=== PATIENT | male | born 1965 | race Caucasian/White ===

== ENCOUNTER 2016-07-12 03:50 | Emergency (ER) ==
[2016-07-12] MEDS ORDERED: DILAUDID IV ONE (04:58)
[2016-07-12] MEDS ORDERED: ZOFRAN IV ONE (04:58)
[2016-07-12] MEDS ORDERED: PROTONIX IV ONE (04:58)
[2016-07-12] MEDS ORDERED: SODIUM CHLORIDE 0.9% INJ ONE (05:01)
[2016-07-12] MEDS ORDERED: NS 1,000 ML IV ONE (05:02)
[2016-07-12 05:27] LABS: MANUAL DIFF NEEDED? NO
[2016-07-12 05:33] LABS: BASO% 0.2 % (0.0-0.8); EOS% 5.8 % (0.0-10.0); HEMATOCRIT 46.3 % (42.0-52.0); HEMOGLOBIN 15.9 g/dL (14.0-18.0); IMM GRAN# 0.02 X1000 (0.0-0.04); IMM GRAN% 0.2 % (0.0-0.5); LYMPH# 2.79 X1000 (1.2-3.4); MCH 30.7 PG (27-31); MCHC 34.3 g/dL (33-37); MCV 89.4 FL (81-99); MONO# 1.06 X1000 (0.11-0.59); MONO% 10.3 % (1.7-9.3); MPV 9.8 FL (7.4-10.4); NEUT% 56.5 % (42.2-75.2); PLT 399 X1000 (130-400); RBC 5.18 XMIL (4.7-6.1)
--- NOTE | 2016-07-12 05:49 | PROVIDER DOCUMENTATION ---
HPI-Abdominal Pain/GI Problem - History of Present Illness-ABD Nature of Presenting Problems: pt had vomiting/diarrhea for 3 dfays /last nitgh developed llq pain assoc w/ melena times 2 ...pt had bowell resecton 20 yrs ago for diverticultis //pt w/ra on adriane Abdominal Pain Onset Location: reports: LLQ, generalized abdomen Pain Radiation: reports: LLQ Quality of Pain: reports: aching, cramping Severity in ED: reports: moderate Onset/Duration: reports: gradual, 24 hours ago Timing: reports: still present, changing over time, getting worse Exposure to sick contacts?: No Associated Symptoms: reports: diarrhea, fever/chills, heartburn, malaise, nausea , vomiting. denies: chest pain, constipation, shortness of breath, pain with inspiration Last BM: this morning Dark Stools Present?: reports: black Rectal Bleeding: denies: bleeding without stool # of Diarrhea Episodes: 2 # of Vomiting Episodes: 4 Emesis Description: reports: none Bruising or Bleeding Gums?: No Similar Symptoms Previously?: No Recently seen or treated by another doctor?: Yes <Baljit Saucedo - Last Filed: 07/12/16 05:43> <Raul Hurst - Last Filed: 07/12/16 07:04> - General Chief Complaint: GI Bleed Stated Complaint: ABD PAIN, N/V/D Time Seen by Provider: 07/12/16 04:25 Allergies/Adverse Reactions: Patient Allergies Allergy/AdvReac Type Severity Reaction Status Date / Time No Known Allergies Allergy Verified 07/12/16 05:29 Home Medications: Home Medication List Medication Instructions Recorded Confirmed Last Taken Type Adalimumab [Humira] 10 mg SQ DIRECTED 07/12/16 07/12/16 07/04/16 History Metronidazole [Flagyl] 500 mg PO 4XDAY #40 tablet 07/12/16 Unknown Rx Sulfamethoxazole/Trimethoprim 2 each PO BID #40 tablet 07/12/16 Unknown Rx [Bactrim Ds Tablet] Sulfasalazine 200 mg PO BID 07/12/16 07/12/16 07/12/16 History Review of Systems - Adult - REVIEW OF SYSTEMS - ADULT Constitutional: reports: see HPI All Other Systems: Reviewed and Negative <Baljit Saucedo - Last Filed: 07/12/16 05:43> Past History - Adult - PAST MEDICAL HISTORY-ADULT Review of Records: reports: Old Records Reviewed, Nursing Assessment Review, Medications Reviewed, Social history reviewed & non-contributory. Cardiovascular: reports: denies history Respiratory: reports: denies history Gastrointestinal: reports: diverticulosis, GERD, GI bleed, other Musculoskeletal: reports: arthritis Neurological: reports: denies history Psychiatric: reports: denies history - IMMUNIZATION STATUS Childhood Immunizations: See Nurse Assessment Flu Vaccine: See Nurse Assessment - FAMILY HISTORY Family History: reviewed, not pertinent - SOCIAL HISTORY Smoking: denies Provider spent 3-5 mins advising pt. on dangers of tobacco.: Discussed manners to quit use, and f/u contacts for add'l counseling. Substance Use: none/never Alcohol Use Frequency: never Living Situation: family <Baljit Saucedo - Last Filed: 07/12/16 05:43> Physical Exam-General - PHYSICAL EXAM-ADULT Initial Vital Signs Reviewed: Yes - CONSTITUTIONAL General Appearance: alert, no apparent distress, anxious - EYES Eyes: PERRL/EOMI - HEAD, EARS, NOSE, MOUTH & THROAT HENMT: normocephalic/atraumatic, moist mucous membranes, normal ENT inspection - RESPIRATORY Respiratory: chest non-tender, lungs clear, normal breath sounds, no pleuratic chest pain - CARDIOVASCULAR Cardiovascular: normal peripheral pulses, regular rate, rhythm, no edema, no gallop - GASTROINTESTINAL (ABDOMEN) Abdominal Exam: normal bowel sounds, soft, no organomegaly, no pulsatile mass, tenderness (llq pain) - GENITOURINARY Rectal Exam: other (black stools in toillet) Hemoccult Exam: heme positive stool - MUSCULOSKELETAL Back Exam: normal inspection, no CVA tenderness, no vertebral tenderness Extremity: normal range of motion, non-tender, normal gait, normal inspection - SKIN Integumentary: normal color, normal turgor, warm/dry - 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 as tested, grossly normal, no motor/sensory deficits - PSYCHIATRIC Psych/Mental Status: normal mood/affect, normal thought content, oriented x 3 <Baljit Saucedo - Last Filed: 07/12/16 05:43> Progress - REASSESSMENT Reassessment #1 Time Reassessed: 05:50 (cbc=wnl) Status: unchanged - CHANGE OF SHIFT REPORT (ED Provider) Report Given and Care Transferred to:: dr butt Time of Transfer: 05:50 Items Pending: Labs, CT/MRI Results, Physician Consult/Arrival <Baljit Saucedo M - Last Filed: 07/12/16 05:43> - PLAN OF CARE/RESULTS Progress/Plan/Lab Results: CT abdomen reveals a right sided colitis Laboratory Tests 07/12/16 07/12/16 05:15 05:15 WBC 10.33 RBC 5.18 Hgb 15.9 Hct 46.3 MCV 89.4 MCH 30.7 MCHC 34.3 RDW Std Deviation 12.9 Plt Count 399 MPV 9.8 Immature Gran % (Auto) 0.2 Neut % (Auto) 56.5 Lymph % (Auto) 27.0 Wetzel % (Auto) 10.3 H Eos % (Auto) 5.8 Baso % (Auto) 0.2 Immature Gran # (Auto) 0.02 Neut # (Auto) 5.84 Lymph # (Auto) 2.79 Wetzel # (Auto) 1.06 H Eos # (Auto) 0.60 Baso # (Auto) 0.02 Sodium 141 Potassium 3.9 Chloride 102 Carbon Dioxide 23 L Anion Gap 16 BUN 7 L Creatinine 0.8 Estimated GFR/1.73 m2 > 60 BUN/Creatinine Ratio 9 Glucose 103 Calculated Osmolality 279 Calcium 9.1 Total Bilirubin 0.23 AST 14 ALT 15 Alkaline Phosphatase 71 Total Protein 7.3 Albumin 4.0 Globulin 3.3 Albumin/Globulin Ratio 1.2 Amylase 62 Lipase 19 Orders Category Date Time Status Orthostatic Vital Signs NOW Care 07/12/16 04:[address] ABD/PELVIS W/ IV CONT ONLY [CT] Stat Exams 07/12/16 05:01 Taken AMYLASE [CHEM] Stat Lab 07/12/16 05:15 Completed CBC WITH DIFF [HEME] Stat Lab 07/12/16 05:15 Completed COMPREHENSIVE METABOLIC PANEL [CHEM] Stat Lab 07/12/16 05:15 Completed LIPASE [CHEM] Stat Lab 07/12/16 05:15 Completed OCCULT BLOOD SCREENING [STOOL] Stat Lab 07/12/16 04:55 Completed TYPE & SCREEN [BBK] Stat Lab 07/12/16 05:15 Received 0.9% Sodium Chloride Inj [Ns] 1,000 ml Med 07/12/16 05:02 Discontinued IV 999 mls/hr Hydromorphone [Dilaudid] Med 07/12/16 04:58 Discontinued 1 mg IV NOW ONE Ondansetron [Zofran] Med 07/12/16 04:58 Discontinued 4 mg IV NOW ONE Pantoprazole [Protonix] Med 07/12/16 04:58 Discontinued 40 mg IV NOW ONE Sodium Chloride 0.9% Med 07/12/16 05:01 Discontinued 10 ml INJ NOW ONE Vital Signs Temp Pulse Pulse Pulse Pulse Resp BP 07/12/16 05:39 89 92 H 101 H 89 18 131/85 07/12/16 04:09 98.1 F 94 H 18 125/83 BP BP BP Pulse Ox 07/12/16 05:39 126/83 123/88 131/85 95 07/12/16 04:09 97 No Known Allergies Allergy (Verified 07/12/16 05:29) Adalimumab [Humira] 10 mg SQ DIRECTED 07/12/16 Sulfasalazine 200 mg PO BID 07/12/16 Laboratory 07/12/16 07/12/16 05:15 05:15 WBC 10.33 RBC 5.18 Hgb 15.9 Hct 46.3 MCV 89.4 MCH 30.7 MCHC 34.3 RDW Std Deviation 12.9 Plt Count 399 MPV 9.8 Immature Gran % (Auto) 0.2 Neut % (Auto) 56.5 Lymph % (Auto) 27.0 Wetzel % (Auto) 10.3 H Eos % (Auto) 5.8 Baso % (Auto) 0.2 Immature Gran # (Auto) 0.02 Neut # (Auto) 5.84 Lymph # (Auto) 2.79 Wetzel # (Auto) 1.06 H Eos # (Auto) 0.60 Baso # (Auto) 0.02 Sodium 141 Potassium 3.9 Chloride 102 Carbon Dioxide 23 L Anion Gap 16 BUN 7 L Creatinine 0.8 Estimated GFR/1.73 m2 > 60 BUN/Creatinine Ratio 9 Glucose 103 Calculated Osmolality 279 Calcium 9.1 Total Bilirubin 0.23 AST 14 ALT 15 Alkaline Phosphatase 71 Total Protein 7.3 Albumin 4.0 Globulin 3.3 Albumin/Globulin Ratio 1.2 Amylase 62 Lipase 19 <Raul Hurst - Last Filed: 07/12/16 07:04> Departure - Departure Time of Disposition Order: 05:50 Certified Medical Emergency: Emergent <Baljit Saucedo - Last Filed: 07/12/16 05:43> - Departure Time of Disposition Order: 07:01 Certified Medical Emergency: Emergent <Raul Hurst. - Last Filed: 07/12/16 07:04> - Departure DIAGNOSIS: Melena, LLQ abdominal pain, Colitis Disposition: HOME 01 Condition: Stable Additional Instructions: Pt will follow up with his gastroenrologist in [facility] Follow Up Instructions: You have been treated by a care provider in the Emergency Department. These instructions are being provided to you so you can have an understanding of how to care for yourself upon discharge. Upon discharge from the Emergency Department, you are responsible for making arrangements for follow-up care by a physician of your choice. Take all prescribed medications as directed. Return to the Emergency Department immediately for any new or worsening symptoms. You may call the Physician Referral phone number at [phone] to obtain a list of Physicians who are taking new patients. Prescriptions: Sulfamethoxazole/Trimethoprim [Bactrim Ds Tablet] 2 each PO BID #40 tablet Metronidazole [Flagyl] 500 mg PO 4XDAY #40 tablet Referrals: None,PCP [Primary Care Provider] - Physician Attestation
[2016-07-12 05:53] LABS: AGAP 16; ALKALINE PHOSPHATASE 71 U/L (32-122); AMYLASE 62 U/L (20-200); BUN 7 mg/dL (8-22); CALCIUM 9.1 mg/dL (8.8-10.2); CHLORIDE 102 mmol/L (98-107); COSMO 279; GOT 14 U/L (10-34); GPT 15 U/L (10-44); LIPASE 19 U/L (13-60); POTASSIUM 3.9 mmol/L (3.5-5.1); SODIUM 141 mmol/L (136-145); TCO2 23 mmol/L (25-35); TOTAL BILIRUBIN 0.23 mg/dL (0.20-1.00); TOTAL PROTEIN 7.3 g/dL (6.3-8.3)
[2016-07-12 07:49] VITALS: BP 115/86
--- NOTE | 2016-07-12 07:56 | Diag Imaging Result Document ---
PROCEDURE NAME: CT ABD/PELVIS W/ IV CONT ONLY - 07/12/2016 CT ABDOMEN AND PELVIS WITH INTRAVENOUS CONTRAST, 07/12/2016: A CT dose reduction protocol was used. COMPARISON: None. FINDINGS: The lung bases are clear and the heart size is normal. There is inflammatory appearing edema about the right colon to the level of the hepatic flexure. No free air or free fluid. No bowel obstruction. The remainder of the colon is unremarkable. Urinary bladder , prostate, and rectum are normal. Solid organs are normal. Bony structures are intact. IMPRESSION: Right colitis. MTDD
== END 2016-07-12 07:49 | disposition home or self-care (01) ==
LOC: ED 03:50
DX: K52.9 Noninfective gastroenteritis and colitis, unspecified (principal); K92.1 Melena; R10.32 Left lower quadrant pain; M19.90 Unspecified osteoarthritis, unspecified site; Z79.899 Other long term (current) drug therapy
CPT/HCPCS: 74177; 80053; 82150; 82270; 83690; 85025; 86850; 86900; 86901; C9113; J1170; J2405; J7030; Q9967; S0164